=== PATIENT | female | born 1940 | race Caucasian/White ===

== ENCOUNTER 2017-06-11 22:49 | Inpatient (IN) | payer MEDICARE, OTHER ==
[~2017-06-11] VITALS: Ht 137.2 cm; Wt 89.3 kg
[~2017-06-11 22:49] MED LIST: ACET500C5 PO; ATEN50TA; ATOR40TA21; BENA20TA65; CITROMA PO; GLYB1TAB3; LORA-441; MELO-37; NPH,100V; OLME1TAB25; OMEP20CA16; ONDA4TAB35 PO; POLY17PO6 PO; TRAM-40; ZOLP10TA; [UNRECOGNIZED DRUG - CODE]
[2017-06-11] MEDS ORDERED: morphine 4 MG/ML VIAL IV STA (23:09)
[2017-06-11] MEDS ORDERED: FAMOTIDINE 20 MG INJ IV STA (23:09)
[2017-06-11] MEDS ORDERED: ONDANSETRON 4 MG INJ IV STA (23:09)
[2017-06-11] MEDS ORDERED: SOD CHLORIDE 0.9% 500 ML IV STA (23:09)
[2017-06-11 23:38] LABS: BASOPHIL # 0.1 10^3/ul (0.0-0.1); BASOPHILS % 0.6 % (0.0-2.0); EOSINOPHILS # 0.2 10^3/ul (0.0-0.5); EOSINOPHILS % 1.6 % (0.0-7.0); HEMATOCRIT 39.7 % (37.0-47.0); HEMOGLOBIN 13.6 g/dl (12.0-16.0); LYMPHOCYTES # 2.4 10^3/ul (0.8-2.9); LYMPHOCYTES % 25.2 % (15.0-51.0); MEAN CORPUSCULAR HEMOGLOBIN 29.3 pg (29.0-33.0); MEAN CORPUSCULAR HGB CONC 34.3 g/dl (32.0-37.0); MEAN CORPUSCULAR VOLUME 85.6 fl (82.0-101.0); MEAN PLATELET VOLUME 9.9 fl (7.4-10.4); MONOCYTE # 0.4 10^3/ul (0.3-0.9); MONOCYTES % 4.5 % (0.0-11.0); NEUTROPHIL # 6.4 10^3/ul (1.6-7.5); NEUTROPHILS % 67.8 % (39.0-77.0); PLATELET COUNT 268 10^3/UL (140-415); RED BLOOD COUNT 4.64 10^6/ul (4.20-5.40); RED CELL DISTRIBUTION WIDTH 12.9 % (11.5-14.5); WHITE BLOOD COUNT 9.4 10^3/ul (4.8-10.8)
[2017-06-11 23:48] LABS: ADD UMIC YES; UR ASCORBIC ACID NEGATIVE (NEGATIVE); UR BILIRUBIN (Dip) NEGATIVE (NEGATIVE); UR BLOOD (Dip) NEGATIVE (NEGATIVE); UR CLARITY CLEAR (CLEAR); UR COLOR STRAW (YELLOW); UR GLUCOSE (Dip) 1+ mg/dL (NEGATIVE); UR KETONES (Dip) NEGATIVE (NEGATIVE); UR LEUKOCYTE ESTERASE (Dip) TRACE Leu/ul (NEGATIVE); UR NITRITE (Dip) NEGATIVE (NEGATIVE); UR RBC 0 /HPF (0-5); UR SPECIFIC GRAVITY (Dip) 1.009 (1.003-1.030); UR TOTAL PROTEIN (Dip) NEGATIVE (NEGATIVE); UR UROBILINOGEN (Dip) NEGATIVE (NEGATIVE)
--- NOTE | 2017-06-11 23:54 | RADRPT ---
PROCEDURE: CT abdomen and pelvis without contrast. CLINICAL INDICATION: Lower abdominal pain. TECHNIQUE: Noncontrast CT examination of the abdomen and pelvis, with axial, sagittal and coronal reformatted images. CTDI: 22.67 mGy and DLP: 1170.11 mGy-cm. COMPARISON: None. FINDINGS: CT abdomen: Mild atelectasis at the left lower lobe. Otherwise, the lung bases are clear. The heart size is mi ldly enlarged, without pericardial thickening or effusion. The liver is normal in size and density without focal mass or intrahepatic biliary dilatation. The spleen is normal in size and homogeneous in density. The stomach is partially collapsed, but is che ssly unremarkable. The pancreas as visualized is normal. The gallbladder is surgically absent, and biliary tree is unremarkable and there is no evidence for biliary dilatation. The adrenal glands a re symmetric and normal. The kidneys are symmetrically unremarkable as well. No renal calculus or o bstructive uropathy or mass lesion is seen. The aorta is of normal caliber. Aortic vascular calcifications are present. There is no retroperit acosta lymphadenopathy. The jermaine hepatis region is clear. The bowel and mesentery, as visualized, are equally unremarkable. CT pelvis: Herniation of loops of small bowel into the right paracentral ventral pelvic region again seen, with new small bowel obstruction. Region of herniation measures 78 x 42 x 42 mm, and previously measured 67 x 33 x 31 mm obstruction is new over the interval. Herniation of single loop of small bowel into the subcutaneous fat over the lower right inguinal reg ion is without significant liner roll changer interval, and there is no small bowel obstruction at this loo p. The pelvic organs are normal. The pelvic sidewalls and inguinal regions are clear. The sigmoid col on and rectum are all unremarkable. No mass, lymphadenopathy, or free fluid is seen. No acute infl ammation is seen. The appendix is unremarkable. The surrounding osseous structures are remarkable for mild degenerative spondylosis of the spine. N o osteolytic or osteoblastic lesion is detected. IMPRESSION: Increased herniation of small bowel into the right paracentral ventral pelvic subcutaneous tissues, with new small bowel obstruction. These findings and impression were discussed with of the [facility] emergency depa rtment at the conclusion of this examination by the undersigned interpreting radiologist. RPTAT: UU Gurmeet Camacho Physician Date Time Electronically viewed and signed by Gurmeet Camacho Physician on 06/11/2017 23:54 RS/
[2017-06-12 00:12] LABS: ALBUMIN 4.2 g/dl (3.3-4.9); ALBUMIN/GLOBULIN RATIO 1.27; BILIRUBIN,INDIRECT 0.4 mg/dl (0-1.1); BILIRUBIN,TOTAL 0.4 mg/dl (0.2-1.3); CALCIUM 9.5 mg/dl (8.4-10.2); CREATININE 0.74 mg/dl (0.44-1.00); POTASSIUM 3.9 mmol/L (3.5-5.1); TOTAL PROTEIN 7.5 g/dl (6.1-8.1)
[2017-06-12] MEDS ORDERED: SOD CHLORIDE 0.9% 1,000 ML IV SCH (00:22)
--- NOTE | 2017-06-12 00:27 | ERA ---
ER Documentation Chief Complaint Date/Time DATE: 06/12/17 TIME: 00:24 Chief Complaint Generalized abdominal pain with nausea, started a couple of hours ago HPI This is a 76-year-old female with a previous history of abdominal hernia with obstruction and previous bowel resection presents to the emergency room today for evaluation of abdominal pain, nausea for the past 3 hours. She localizes the abdominal pain to the midportion of abdomen and denies any radiation of the pain. She says that she has associated nausea but no vomiting. No fevers or diarrhea associated with this. No aggravating or relieving factors for her symptoms. She came to the ER today for evaluation. ROS All systems reviewed and are negative except as per history of present illness. Medications Home Meds Active Scripts Ondansetron Hcl* (Zofran* ODT) 4 mg -ODT Tab.disper, 4 MG PO Q6 Y for NAUSEA AND /OR VOMITING, #10 TAB Prov:MARIBEL FARIA DO 04/15/16 Acetaminophen* (Tylophen*) 500 Mg Capsule, 500 MG PO Q6H, #20 TAB Prov:MARIBEL FARIA DO 04/15/16 Polyethylene Glycol* (Miralax*) 17 Gm Powd.pack, 17 GM PO DAILY, #7 Prov:TADEO FARIASHMONSERRAT TENORIO 04/15/16 Magnesium Citrate* (Citroma*) 300 Ml Soln, 300 ML PO ONCE, #1 BOTTLE Prov:GIANARUSSELLMARIBEL DO 04/15/16 Reported Medications Nph, Human Insulin Isophane (Humulin N) 100 Units/Ml Vial 04/25/10 Atenolol* (Atenolol*) 50 Mg Tablet 04/25/10 Olmesartan-Hydrochlorothiazide (Benicar HCT) 1 Tab Tablet 04/25/10 Meloxicam (Mobic) 15 Mg Tablet 04/25/10 Tramadol Hcl* (Ultram*) 50 Mg Tablet 04/25/10 Omeprazole* (Omeprazole*) 20 Mg Capsule. 04/25/10 Lorazepam* (Ativan*) 0.5 Mg Tablet 04/25/10 Benazepril Hcl* (Lotensin*) 20 Mg Tablet 04/25/10 Glyburide, Micro-Metformin Hcl (Glyburid-Metformin) 1 Tab Tablet 04/25/10 Atorvastatin (Lipitor) 40 Mg Tablet 04/25/10 Atorvastatin (Lipitor) 40 Mg Tablet 04/25/10 Zolpidem Tartrate* (Ambien*) 10 Mg Tablet 04/25/10 Belladonna Alkaloids/Phenobarb (Belladonna-Phenobarbital Tab) 16.2 Mg Tablet 04/25/10 Allergies Allergies: Coded Allergies: No Known Drug Allergies (Verified Allergy, Mild, 04/15/16) PMhx/Soc Anesthesia Reaction: No Hx Neurological Disorder: No Hx Respiratory Disorders: No Hx Cardiac Disorders: Yes (HYPERTENSION) Hx Psychiatric Problems: No Hx Miscellaneous Medical Probl: Yes Hx Alcohol Use: No Hx Substance Use: No Hx Tobacco Use: No Smoking Status: Unknown if ever smoked Physical Exam Vitals Vital Signs Date Time Temp Pulse Resp B/P Pulse Ox O2 Delivery O2 Flow Rate FiO2 06/12/17 00:21 64 16 156/83 98 Room Air 06/11/17 22:55 98.5 65 22 195/86 99 Physical Exam INITIAL VITAL SIGNS: Reviewed by me GENERAL: The patient appears to be in moderate distress HEENT: Pupils equal, round, and reactive to light. EOMI. There is no scleral icterus. NECK: C-spine is soft and supple, there is no meningismus. There is no cervical lymphadenopathy. LUNGS: Clear to auscultation bilaterally. There are no rales, wheezes or rhonchi. HEART: Regular rate and rhythm, no murmurs, clicks, rubs or gallops. ABDOMEN: Epigastric tenderness to palpation, palpable hernia at the periumbilical region with tenderness, guarding in all 4 quadrants, bowel sounds hyperactive EXTREMITIES: There is no peripheral cyanosis or edema. No focal swelling or erythema. NEUROLOGICAL: The patient moves all four extremities with 5/5 strength. Cranial nerves II - XII are intact. Normal gait. Alert and oriented SKIN: There is no apparent rash or petechiae. HEME/LYMPHATIC: There is no evidence of excessive bruising or lymphedema. PSYCHIATRIC: The patient does not appear anxious or depressed. Result Diagram: 06/11/17 3880 Results 24 hrs Laboratory Tests Test 06/11/17 23:25 White Blood Count 9.410^3/ul Red Blood Count 4.6410^6/ul Hemoglobin 13.6g/dl Hematocrit 39.7% Mean Corpuscular Volume 85.6fl Mean Corpuscular Hemoglobin 29.3pg Mean Corpuscular Hemoglobin Concent 34.3g/dl Red Cell Distribution Width 12.9% Platelet Count 86329^3/UL Mean Platelet Volume 9.9fl Neutrophils % 67.8% Lymphocytes % 25.2% Monocytes % 4.5% Eosinophils % 1.6% Basophils % 0.6% Nucleated Red Blood Cells % 0.0/100WBC Neutrophils # 6.410^3/ul Lymphocytes # 2.410^3/ul Monocytes # 0.410^3/ul Eosinophils # 0.210^3/ul Basophils # 0.110^3/ul Nucleated Red Blood Cells # 0.010^3/ul Urine Color STRAW Urine Clarity CLEAR Urine pH 7.0 Urine Specific [place] 1.009 Urine Ketones NEGATIVEmg/dL Urine Nitrite NEGATIVEmg/dL Urine Bilirubin NEGATIVEmg/dL Urine Urobilinogen NEGATIVEmg/dL Urine Leukocyte Esterase TRACELeu/ul Urine Microscopic RBC 0/HPF Urine Microscopic WBC 5/HPF Urine Hemoglobin NEGATIVEmg/dL Urine Glucose 1+mg/dL Urine Total Protein NEGATIVEmg/dl Current Medications Medications (Trade) Dose Ordered Sig/Nuvia Route PRN Reason Start Time Stop Time Status Last Admin Dose Admin Sodium Chloride (NS) 500 ml @ 500 mls/hr Q1H STAT IV 06/11/17 23:09 06/12/17 00:08 DC 06/11/17 23:40 Morphine Sulfate (morphine) 4 mg ONCE STAT IV 06/11/17 23:09 06/11/17 23:10 DC 06/11/17 23:39 Ondansetron HCl (Zofran Inj) 4 mg ONCE STAT IV 06/11/17 23:09 06/11/17 23:10 DC 06/11/17 23:39 Famotidine 20 mg 20 mg ONCE STAT IV 06/11/17 23:09 06/11/17 23:10 DC 06/11/17 23:40 Sodium Chloride (NS) 1,000 ml @ 80 mls/hr [id number] IV 06/12/17 00:22 06/12/17 12:51 Ondansetron HCl (Zofran Inj) 4 mg BRIDGE ORDER PRN IV NAUSEA AND/OR VOMITING 06/12/17 00:30 06/13/17 00:29 Acetaminophen (Tylenol Tab) 650 mg ER BRIDGE PRN PO MILD PAIN/FEVER 06/12/17 00:30 06/13/17 00:29 Procedures/MDM CT abdomen pelvis without: Increased herniation of small bowel into the right paracentral ventral pelvic subcutaneous tissues, with new small bowel obstruction. This 76-year-old female presents to the ER for evaluation of abdominal pain. The patient does have a previous history of abdominal pain associated with bowel obstruction. When I evaluated her she appear to be in moderate distress. She did have a palpable hernia at the periumbilical region. The patient did have lab work drawn and was given morphine for pain which is controlled her pain. CT was obtained which did confirm my suspicion of a small bowel obstruction. This patient is not vomiting, no need for nasogastric tube at this time. This patient will be placed in for admission under the care of her panel physician, Dr. hernandez have consulted our general surgeon on-call, Dr. Santacruz who agrees to evaluate this patient on the floor. Critical Care: Time: 33 minutes Treatments/Evaluations: Close monitoring and treatment of unstable vital signs, cardiorespiratory, and neurologic status, while maintaining tight balance of fluid, respiratory, and cardiac interventions, multiple bedside reevaluation. Departure Diagnosis: Primary Impression: Small bowel obstruction Additional Impression: Abdominal pain Condition: Stable CHRISJUAN DORADOSHORTY TENORIO Jun 12, 2017 00:27
[2017-06-12] MEDS ORDERED: ACETAMINOPHEN 325 MG TAB PO PRN (00:30)
[2017-06-12] MEDS ORDERED: ONDANSETRON 4 MG INJ IV PRN (00:30)
[2017-06-12 00:42] LABS: INR 0.96; PROTIME 12.8 Sec (12.2-14.2)
[2017-06-12 00:50] VITALS: Ht 137.2 cm; Wt 89.3 kg
[2017-06-12 01:21] VITALS: BP 141/80; RESP 16
[2017-06-12] MEDS ORDERED: FAMOTIDINE 20 MG INJ IV SCH (01:30)
[2017-06-12] MEDS ORDERED: morphine 4 MG/ML VIAL IV PRN (01:30)
[2017-06-12] MEDS ORDERED: GLUCOSE GEL 15 GRAM TUBE BUCCAL PRN (02:00)
[2017-06-12] MEDS ORDERED: GLUCAGON 1 MG INJ IM PRN (02:00)
[2017-06-12] MEDS ORDERED: DEXTROSE 50% 50 ML SYRINGE IV PRN ×2 (02:00)
[2017-06-12] MEDS ORDERED: GLUCOSE GEL 15 GRAM TUBE PO PRN ×2 (02:00)
[2017-06-12] MEDS ORDERED: ACCU-CHEK XX SCH ×3 (02:00)
[2017-06-12] MEDS: DEXTROSE 5%-0.45% NACL 1,000 ML IV SCH ×3 (02:05→22:01)
[2017-06-12] MEDS: morphine 4 MG/ML VIAL IV PRN ×4 (02:22→21:59)
[2017-06-12] MEDS: INSULIN ASPART [NOVOLOG] 3 ML PEN SC SCH ×5 (02:41→17:20)
[2017-06-12 05:40] LABS: BASOPHIL # 0.1 10^3/ul (0.0-0.1); BASOPHILS % 0.5 % (0.0-2.0); EOSINOPHILS # 0.2 10^3/ul (0.0-0.5); HEMATOCRIT 38.8 % (37.0-47.0); HEMOGLOBIN 12.6 g/dl (12.0-16.0); LYMPHOCYTES # 2.6 10^3/ul (0.8-2.9); LYMPHOCYTES % 27.6 % (15.0-51.0); MEAN CORPUSCULAR HEMOGLOBIN 28.4 pg (29.0-33.0); MEAN CORPUSCULAR HGB CONC 32.5 g/dl (32.0-37.0); MEAN CORPUSCULAR VOLUME 87.4 fl (82.0-101.0); MEAN PLATELET VOLUME 10.1 fl (7.4-10.4); MONOCYTE # 0.6 10^3/ul (0.3-0.9); MONOCYTES % 5.9 % (0.0-11.0); NEUTROPHILS % 63.7 % (39.0-77.0); PLATELET COUNT 260 10^3/UL (140-415); RED BLOOD COUNT 4.44 10^6/ul (4.20-5.40); RED CELL DISTRIBUTION WIDTH 13.2 % (11.5-14.5); WHITE BLOOD COUNT 9.4 10^3/ul (4.8-10.8)
[2017-06-12 06:04] LABS: ALBUMIN 3.9 g/dl (3.3-4.9); ALBUMIN/GLOBULIN RATIO 1.39; BILIRUBIN,INDIRECT 0.4 mg/dl (0-1.1); BILIRUBIN,TOTAL 0.4 mg/dl (0.2-1.3); CALCIUM 8.7 mg/dl (8.4-10.2); CREATININE 0.76 mg/dl (0.44-1.00); PHOSPHORUS 4.1 mg/dl (2.5-4.9); POTASSIUM 4.3 mmol/L (3.5-5.1); TOTAL PROTEIN 6.7 g/dl (6.1-8.1)
--- NOTE | 2017-06-12 06:09 | HP ---
Date/Time of Note Date/Time of Note DATE: 06/12/17 TIME: 06:00 Assessment/Plan VTE Prophylaxis VTE Prophylaxis Intervention: SCD's Lines/Catheters IV Catheter Type (from Nrsg): Peripheral IV Assessment/Plan Assessment/Plan 1. 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 -Keep n.p.o. with IV fluid -Pain management -Awaiting surgical evaluation -Will place an NG tube to suction as needed 2. Hypertensive urgency: Blood pressure better controlled -We will treat with as needed IV antihypertensives while n.p.o. 3. Type 2 diabetes -Insulin while in-house 4. History of gastritis -PPI 5. History of dyslipidemia -Resume home medication once no longer n.p.o. HPI/ROS Admit Date/Time Admit Date/Time Jun 12, 2017 at 00:22 Hx of Present Illness This is a 76-year-old female with a history of hypertension, diabetes, dyslipidemia, gastritis, ventral hernia repair, small bowel obstruction secondary to volvulus, status post laparoscopic converted to open exploration in 2009. Patient presented to the ER complaining of abdominal pain which started a few hours prior to presentation to the ER. Pain is diffuse but mainly located in the mid abdomen with associated nausea. When she presented to the ER, blood pressure was 195/86, respiratory rate of 22 otherwise the rest of her vitals were stable. Except a glucose of 228, CBC and CMP were within acceptable range. CT abd/pelvis showed Increased herniation of small bowel into the right paracentral ventral pelvic subcutaneous tissues, with new small bowel obstruction. . PMH/Family/Social Social History Smoking Status: Current every day smoker Exam/Review of Systems Vital Signs Vitals Vital Signs Date Time Temp Pulse Resp B/P Pulse Ox O2 Delivery O2 Flow Rate FiO2 06/12/17 01:21 98.6 71 16 141/80 91 06/12/17 00:21 Room Air Exam Constitutional: alert, oriented, well developed Head: atraumatic, normocephalic Eyes: EOMI, PERRL Respiratory: clear to auscultation, normal air movement Cardiovascular: nl pulses, regular rate and rhythm Gastrointestinal: soft, tender Extremities: normal pulses Labs Result Diagram: 06/12/17 0440 06/11/17 6196 Medications Medications Current Medications Sodium Chloride 1,000 ml @ 80 mls/hr [id number] IV ; Start 06/12/17 at 00:22; Stop 06/12/17 at 12:51 Dextrose/Sodium Chloride (D5-1/2ns) 1,000 ml @ 100 mls/hr Q10H IV Last administered on 06/12/17 02:05; Admin Dose 100 MLS/HR; Start 06/12/17 at 01:30 Ondansetron HCl (Zofran Inj) 4 mg Q6H PRN IV NAUSEA AND/OR VOMITING; Start 06/12 at 01:30 Insulin Glargine (Lantus) 10 unit DAILY@08 SC ; Start 06/12/17 at 08:00 Insulin Aspart (Novolog Insulin Pen) NOVOLOG *MILD* ALGORI... Q6 SC Last administered on 06/12/17 02:41; Admin Dose 3 UNIT; Start 06/12/17 at 02:00 Miscellaneous Information 1 ea NOTE XX ; Start 06/12/17 at 02:00 Glucose (Glutose) 15 gm Q15M PRN PO DECREASED GLUCOSE; Start 06/12/17 at 02:00 Glucose (Glutose) 22.5 gm Q15M PRN PO DECREASED GLUCOSE; Start 06/12/17 at 02:00 Dextrose (D50w Syringe) 25 ml Q15M PRN IV DECREASED GLUCOSE; Start 06/12/17 at 02:00 Dextrose (D50w Syringe) 50 ml Q15M PRN IV DECREASED GLUCOSE; Start 06/12/17 at 02:00 Glucagon (Glucagen) 1 mg Q15M PRN IM DECREASED GLUCOSE; Start 06/12/17 at 02:00 Glucose (Glutose) 15 gm Q15M PRN BUCCAL DECREASED GLUCOSE; Start 06/12/17 at 02: 00 Famotidine (Pepcid Iv) 20 mg DAILY IV ; Start 06/12/17 at 09:00 Morphine Sulfate (morphine) 4 mg Q4H PRN IV PAIN Last administered on 06/12/17 02:22; Admin Dose 4 MG; Start 06/12/17 at 02:30 OKSANA ROBERTSON MD Jun 12, 2017 06:09
[2017-06-12] MEDS ORDERED: INSULIN GLARGINE [LANtus] 3 ML PEN SC SCH ×2 (08:00)
[2017-06-12] MEDS: FAMOTIDINE 20 MG INJ IV SCH (08:31)
[2017-06-12 10:01] VITALS: BP 146/67; RESP 18
--- NOTE | 2017-06-12 12:50 | RADRPT ---
PROCEDURE: Chest radiograph CLINICAL INDICATION: Verify NGT placement.. TECHNIQUE: Single portable frontal view. COMPARISON: None relevant listed. FINDINGS: The nasogastric tube terminates below the diaphragm out of the field of view. The lungs are clear. No pleural effusion or focal parenchymal opacity. The heart is enlarged. Moderate lateral endplate spurring of the thoracic spine. No suspicious bone lesion. IMPRESSION: The nasogastric tube courses well below the gastroesophageal junction. The actual tip of the nasog astric tube lies below the field of view. RPTAT: PP Physician Armand Date Time Electronically viewed and signed by Physician Armand on 06/12/2017 12:49 LG/
[2017-06-12] MEDS ORDERED: INSULIN GLARGINE [LANtus] 3 ML PEN SC ONE (13:00)
--- NOTE | 2017-06-12 13:00 | PN ---
Date/Time of Note Date/Time of Note DATE: 06/12/17 TIME: 12:57 Assessment/Plan VTE Prophylaxis VTE Prophylaxis Intervention: other Lines/Catheters IV C[facility] Type [facility]from [facility] Peripheral IV Urinary Cath still in place: No Assessment/Plan Problems: (1) Hernia of anterior abdominal wall Status: Acute Comment: This was found on the CT scan. We will have to observe her and treat her conservatively and hope to avoid any need for emergent surgery. Awaiting general surgery consultation who has been notified directly (2) Small bowel obstruction Status: Acute Comment: As above. Attempt to treat conservatively. (3) Essential hypertension Status: Chronic Comment: Adequate control. Resume JAMES inhibitor is as single agent therapy when the patient is taking p.o. Please note that there is no indication for the using the combination of JAMES inhibitor with an A2 receptor manuel drug (4) Morbid obesity with BMI of 45.0-49.9, adult Status: Chronic Comment: Calorie restriction diet. (5) Diabetes mellitus type 2 in obese Status: Chronic Comment: She appears to have had good control. For now since we can give her her medications orally she will be on an insulin-based protocol. Once she is able to take p.o. than we can resume her oral medications (6) Diastolic dysfunction Status: Chronic Comment: Noted. If necessary addition of low-dose beta-blockade Subjective 24 Hr Interval Summary Free Text/Dictation Prydeinig speaking female lying in bed with an NG attached to suction. Daughter at bedside translating Constitutional: no complaints (Denies fevers chills or sweats) ENT: other (Complains of sore throat and tenderness from the NG tube) Respiratory: no complaints Cardiovascular: no complaints Gastrointestinal: nausea, pain Genitourinary: no complaints Exam/Review of Systems Vital Signs Vitals Vital Signs Date Time Temp Pulse Resp B/P Pulse Ox O2 Delivery O2 Flow Rate FiO2 06/12/17 10:01 98.8 61 18 146/67 93 06/12/17 00:21 Room Air Intake and Output 06/11/17 06/11/17 06/12/17 15:00 23:00 07:00 Intake Total 300 ml Balance 300 ml Exam Constitutional: alert, oriented Neck: non-tender, supple Respiratory: clear to auscultation, normal air movement Cardiovascular: nl pulses, regular rate and rhythm Gastrointestinal: other (Quiet) Results Result Diagram: 06/12/17 0440 06/12/17 0440 Results 24 hrs Laboratory Tests Test 06/11/17 23:25 06/12/17 00:05 06/12/17 01:41 06/12/17 04:40 White Blood Count 9.4 # 9.4 Red Blood Count 4.64 4.44 Hemoglobin 13.6 12.6 Hematocrit 39.7 38.8 Mean Corpuscular Volume 85.6 87.4 Mean Corpuscular Hemoglobin 29.3 28.4 L Mean Corpuscular Hemoglobin Concent 34.3 32.5 Red Cell Distribution Width 12.9 13.2 Platelet Count 268 260 Mean Platelet Volume 9.9 10.1 Neutrophils % 67.8 63.7 Lymphocytes % 25.2 27.6 Monocytes % 4.5 5.9 Eosinophils % 1.6 2.0 Basophils % 0.6 0.5 Nucleated Red Blood Cells % 0.0 0.0 Neutrophils # 6.4 6.0 Lymphocytes # 2.4 2.6 Monocytes # 0.4 0.6 Eosinophils # 0.2 0.2 Basophils # 0.1 0.1 Nucleated Red Blood Cells # 0.0 0.0 Urine Color STRAW Urine Clarity CLEAR Urine pH 7.0 Urine Specific [place] 1.009 Urine Ketones NEGATIVE Urine Nitrite NEGATIVE Urine Bilirubin NEGATIVE Urine Urobilinogen NEGATIVE Urine Leukocyte Esterase TRACE A Urine Microscopic RBC 0 Urine Microscopic WBC 5 Urine Hemoglobin NEGATIVE Urine Glucose 1+ H Urine Total Protein NEGATIVE Sodium Level 143 142 Potassium Level 3.9 4.3 Chloride Level 101 102 Carbon Dioxide Level 25 27 Anion Gap 21 H 17 H Blood Urea Nitrogen 12 11 Creatinine 0.74 0.76 Glucose Level 228 H 267 H Calcium Level 9.5 8.7 Total Bilirubin 0.4 0.4 Direct Bilirubin 0.00 0.00 Indirect Bilirubin 0.4 0.4 Aspartate Amino Transf (AST/SGOT) 16 23 Alanine Aminotransferase (ALT/SGPT) 31 26 Alkaline Phosphatase 76 60 Total Protein 7.5 6.7 Albumin 4.2 3.9 Globulin 3.30 H 2.80 Albumin/Globulin Ratio 1.27 1.39 Lipase 145 Prothrombin Time 12.8 Prothrombin Time Ratio 1.0 INR International Normalized Ratio 0.96 Activated Partial Thromboplast Time 31.0 Lactic Acid Level 1.2 Bedside Glucose 228 H Phosphorus Level 4.1 Magnesium Level 2.0 Test 06/12/17 06:28 06/12/17 12:16 Bedside Glucose 249 H 207 Medications Medications Current Medications Dextrose/Sodium Chloride (D5-1/2ns) 1,000 ml @ 100 mls/hr Q10H IV Last administered on 06/12/17 12:12; Admin Dose 100 MLS/HR; Start 06/12/17 at 01:30 Ondansetron HCl (Zofran Inj) 4 mg Q6H PRN IV NAUSEA AND/OR VOMITING; Start 06/12 at 01:30 Insulin Aspart (Novolog Insulin Pen) NOVOLOG *MILD* ALGORI... Q6 SC Last administered on 06/12/17 12:20; Admin Dose 2 UNIT; Start 06/12/17 at 02:00 Miscellaneous Information 1 ea NOTE XX ; Start 06/12/17 at 02:00 Glucose (Glutose) 15 gm Q15M PRN PO DECREASED GLUCOSE; Start 06/12/17 at 02:00 Glucose (Glutose) 22.5 gm Q15M PRN PO DECREASED GLUCOSE; Start 06/12/17 at 02:00 Dextrose (D50w Syringe) 25 ml Q15M PRN IV DECREASED GLUCOSE; Start 06/12/17 at 02:00 Dextrose (D50w Syringe) 50 ml Q15M PRN IV DECREASED GLUCOSE; Start 06/12/17 at 02:00 Glucagon (Glucagen) 1 mg Q15M PRN IM DECREASED GLUCOSE; Start 06/12/17 at 02:00 Glucose (Glutose) 15 gm Q15M PRN BUCCAL DECREASED GLUCOSE; Start 06/12/17 at 02: 00 Famotidine (Pepcid Iv) 20 mg DAILY IV Last administered on 06/12/17 08:31; Admin Dose 20 MG; Start 06/12/17 at 09:00 Morphine Sulfate (morphine) 4 mg Q4H PRN IV PAIN Last administered on 06/12/17 08:31; Admin Dose 4 MG; Start 06/12/17 at 02:30 Insulin Glargine (Lantus) 12 unit DAILY@08 SC Last administered on 06/12/17 08: 36; Admin Dose 12 UNIT; Start 06/12/17 at 08:00 MARIBEL BAZZI MD Jun 12, 2017 13:00
[2017-06-12 15:53] VITALS: BP 165/70; RESP 18
--- NOTE | 2017-06-12 16:36 | CONS ---
Date/Time of Note Date/Time of Note DATE: 06/12/17 TIME: 16:36 Assessment/Plan Assessment/Plan Additional Assessment/Plan [facility] INPATIENT CONSULTATION NOTE DATE OF SERVICE: 06/12/2017 PLACE OF SERVICE: [facility], second floor East ASSESSMENT AND PLAN: A very-pleasant 76-year-old lady with multiple comorbid issues as listed below, presenting with a complicated picture of abdominal wall hernia which is recurrent from previous operation in 2009. There are at least 2 areas of herniation in the lower midline area. Unclear whether there is any mesh (no mention of mesh in 2010 op note). Patient also reports no other operations since then. Assuming no mesh present, the patient will still have need for complicated ventral hernia repair. Given the numerous pre-existing comorbidities, she is at virtually 100% risk of developing complications and roughly about 15-20% risk of mortality if an emergency operation is needed. Fortunately, I do not see a need for acute surgical intervention at this moment and would like to try to decompress the GI tract from above as you are with the NG tube and keep her n.p.o. with the hopes that the patient will convert from an emergency operation to an urgent or possibly an elective operation. If the patient stabilizes adequately enough, it may be to her best interest to be referred to a hernia center in order to deliver the best available care. Not certain if that will be a possibility in this case. I explained all the above in detail to the patient and her granddaughter who appeared to understand and had all their questions answered and agreed with the plans. With above assessment, I've recommended the followin. Continue current management 2. Continue NG decompression 3. Continue n.p.o. status 4. Labs in a.m. 5. Careful evaluation of I's and O's and vitals 6. Possible need for preoperative cardiopulmonary clearance Thank you very much for having me involved in the care of this very pleasant patient and wonderful family. If you have any questions, please feel free to contact me at [phone]. Nature of presenting problem: High severity Please note that, given the extensive number of diagnoses or management options , the extensive amount and/or complexity of data needed to be reviewed, and high risk of complications and/or morbidity or mortality, this qualifies as high complexity type of decision-making. Disclaimer: Inadvertent spelling and grammatical errors are likely due to EHR/ dictation software use and do not reflect on the quality of delivered patient care. Also, please note that the electronic time recorded on this node does not necessarily reflect the actual time of the visit. Updated clinical summary: A very-pleasant 76-year-old lady with multiple comorbid issues as listed below, presenting with a complicated picture of abdominal wall hernia which is recurrent from previous operation in 2009. Comorbidities: 1. BMI 47.5 2. Status post cholecystectomy before 2009 3. Status post hospitalization [facility] April 2010 with NG decompression (? Small bowel obstruction) 4. Status post hospitalization [facility] August 2012 5. Atherosclerotic vascular disease with calcifications in the aorta 6. Ventral hernia noted minimum 2009 with additional images supporting hernia 2011 7. Nonobstructing left nephrolithiasis. 8. Dyslipidemia 9. Gastritis 10. Diabetes mellitus type 2 11. Hypertension with hypertensive emergencies. 12. Status post ventral hernia repair in the form of laparoscopic converted to open exploration for bowel obstruction secondary to volvulus by Dr. Tom Walsh on 04/28/2010 at [facility] 13. Umbilical hernia repair previous 2009 14. Status post partial hysterectomy CONSULTATION REQUESTED BY: Rj Arellano MD HISTORY OF PRESENT ILLNESS: The patient is a very pleasant 76-year-old lady with above-mentioned multiple comorbidities, were kindly asked consult regarding management of possible small bowel obstruction in the setting of known ventral hernia at least since before 2009, status post prior surgeries ( details missing). Presenting problem was diffuse but mainly localized to mid abdomen abdominal pain associated with nausea but no obvious vomiting. Currently the pain is significantly better with medications although it is still present. Described as diffuse and bandlike in nature. 10 out of 10 at its worst. Nonradiating. No significant alleviating or exacerbating factors. Also complaining of throat pain with the NG tube. ALLERGIES: NO KNOWN DRUG ALLERGIES MEDICATIONS Documented in the electronic records and reviewed by me. Please see the electronic records for details, as well as details for inpatient medications which were also reviewed by me. SOCIAL HISTORY: The patient lives with family. + Tob (current every day smoker );-ETOH;-IVDU FAMILY HISTORY: There are no significant medical, surgical or oncologic issues in the family as reported by the patient or reflected in the chart. REVIEW OF SYSTEMS: Other than mentioned above, there were no other pertinent positives or pertinent negatives in an otherwise complete 14 point review of systems. PHYSICAL EXAMINATION GENERAL: The patient appears to be a very pleasant lady of [place] descent lying in bed, appearing stated age, and otherwise in no acute distress. BMI: 47.5 VITAL SIGNS: AVSS (please also see auto important data if available as well as the electronic records) HEENT: Normocephalic and atraumatic. Extraocular muscles and hearing are grossly intact bilaterally and symmetrically. Sclerae are nonicteric. Oral cavity is clear; oral mucosa appear to be pink and moist. Dentition: fair. NECK: Supple. There is no lymphadenopathy or JVD. There is no submental, submandibular or supraclavicular lymphadenopathy. CHEST: Rises symmetrically with each breath; patient is breathing comfortably. There are no audible wheezes, rales or rhonchi on the gross exam. HEART: Pulse is regular and palpable on the right wrist. Capillary refill is normal. Carotid pulses are palpable bilaterally and symmetrically in the neck. EXTREMITIES: Lower extremities contain no pitting edema around the ankles bilaterally and symmetrically. ABDOMEN: Abdomen is soft, nontender and nondistended. No evidence of ascites, organomegaly, caput medusae, engorged subcutaneous veins, or other abnormalities. There are no peritoneal signs or guarding. SKIN: Appears to be pink and feels warm to touch. NEUROLOGIC: Awake, alert, and follows commands appropriately. LABORATORY DATA: See below IMAGING: See electronic chart. Please note that I've personally reviewed all pertinent available images and I agree in general with their overall reported findings. CT scan abdomen and pelvis [facility] 04/27/2010 IMPRESSION: 1. DISTENDED AND FLUID-FILLED DISTAL SMALL BOWEL, WHICH MAY REPRESENT A SMALL BOWEL OBSTRUCTION. CONTINUED FOLLOWUP IS SUGGESTED. 2. NASOGASTRIC TUBE IDENTIFIED. 3. STATUS POST CHOLECYSTECTOMY. CT scan abdomen and pelvis [facility] 08/31/2012 IMPRESSION: 1. TWO VENTRAL HERNIAS, ONE IN THE ANTERIOR ABDOMINAL WALL ON THE RIGHT JUST BELOW THE UMBILICUS WITHOUT INCARCERATION OR OBSTRUCTION. 2. SMALL RIGHT INGUINAL HERNIA WITH A LOOP OF SMALL BOWEL WITHOUT DEFINITE INCARCERATION OR OBSTRUCTION. THIS HERNIA WAS NOT PRESENT CT scan abdomen and pelvis [facility] 04/15/2016 IMPRESSION: No evidence of abdominopelvic mass, lymphadenopathy or acute inflammatory pathology. Small nonspecific subpleural nodule of the right middle lobe. Recommend follow up with dedicated CT chest without contrast in 3-6 months. Surgical changes of the distal small intestines. No abnormality of the surgical bed. Nonobstructing left nephrolithiasis. Lower ventral abdominal wall hernia containing loops of small intestines. No associated obstruction or inflammation. The hernia sac is slightly larger when compared to prior examination. CT scan abdomen and pelvis [facility] 06/11/2017 IMPRESSION: Increased herniation of small bowel into the right paracentral ventral pelvic subcutaneous tissues, with new small bowel obstruction. These findings and impression were discussed with of the [facility] emergency department at the conclusion of this examination by the undersigned interpreting radiologist. Consultation Date/Type/Reason Admit Date/Time Jun 12, 2017 at 00:22 Constitutional: no complaints (Denies fevers chills or sweats) ENT: other (Complains of sore throat and tenderness from the NG tube) Respiratory: no complaints Cardiovascular: no complaints Gastrointestinal: nausea, pain Genitourinary: no complaints Social History Smoking Status: Current every day smoker Exam/Review of Systems Vital Signs Vitals Vital Signs Date Time Temp Pulse Resp B/P Pulse Ox O2 Delivery O2 Flow Rate FiO2 06/12/17 15:53 98.6 18 165/70 94 06/12/17 10:01 61 06/12/17 00:21 Room Air Intake and Output 06/11/17 06/11/17 06/12/17 15:00 23:00 07:00 Intake Total 300 ml Balance 300 ml Results Result Diagram: 06/12/17 0440 06/12/17 0440 Results 24 hrs Laboratory Tests Test 06/11/17 23:25 06/12/17 00:05 06/12/17 01:41 06/12/17 04:40 White Blood Count 9.4 # 9.4 Red Blood Count 4.64 4.44 Hemoglobin 13.6 12.6 Hematocrit 39.7 38.8 Mean Corpuscular Volume 85.6 87.4 Mean Corpuscular Hemoglobin 29.3 28.4 L Mean Corpuscular Hemoglobin Concent 34.3 32.5 Red Cell Distribution Width 12.9 13.2 Platelet Count 268 260 Mean Platelet Volume 9.9 10.1 Neutrophils % 67.8 63.7 Lymphocytes % 25.2 27.6 Monocytes % 4.5 5.9 Eosinophils % 1.6 2.0 Basophils % 0.6 0.5 Nucleated Red Blood Cells % 0.0 0.0 Neutrophils # 6.4 6.0 Lymphocytes # 2.4 2.6 Monocytes # 0.4 0.6 Eosinophils # 0.2 0.2 Basophils # 0.1 0.1 Nucleated Red Blood Cells # 0.0 0.0 Urine Color STRAW Urine Clarity CLEAR Urine pH 7.0 Urine Specific [place] 1.009 Urine Ketones NEGATIVE Urine Nitrite NEGATIVE Urine Bilirubin NEGATIVE Urine Urobilinogen NEGATIVE Urine Leukocyte Esterase TRACE A Urine Microscopic RBC 0 Urine Microscopic WBC 5 Urine Hemoglobin NEGATIVE Urine Glucose 1+ H Urine Total Protein NEGATIVE Sodium Level 143 142 Potassium Level 3.9 4.3 Chloride Level 101 102 Carbon Dioxide Level 25 27 Anion Gap 21 H 17 H Blood Urea Nitrogen 12 11 Creatinine 0.74 0.76 Glucose Level 228 H 267 H Calcium Level 9.5 8.7 Total Bilirubin 0.4 0.4 Direct Bilirubin 0.00 0.00 Indirect Bilirubin 0.4 0.4 Aspartate Amino Transf (AST/SGOT) 16 23 Alanine Aminotransferase (ALT/SGPT) 31 26 Alkaline Phosphatase 76 60 Total Protein 7.5 6.7 Albumin 4.2 3.9 Globulin 3.30 H 2.80 Albumin/Globulin Ratio 1.27 1.39 Lipase 145 Prothrombin Time 12.8 Prothrombin Time Ratio 1.0 INR International Normalized Ratio 0.96 Activated Partial Thromboplast Time 31.0 Lactic Acid Level 1.2 Bedside Glucose 228 H Phosphorus Level 4.1 Magnesium Level 2.0 Test 06/12/17 06:28 06/12/17 12:16 Bedside Glucose 249 H 207 Medications Medications Current Medications Dextrose/Sodium Chloride (D5-1/2ns) 1,000 ml @ 100 mls/hr Q10H IV Last administered on 06/12/17 12:12; Admin Dose 100 MLS/HR; Start 06/12/17 at 01:30 Ondansetron HCl (Zofran Inj) 4 mg Q6H PRN IV NAUSEA AND/OR VOMITING; Start 06/12 at 01:30 Insulin Aspart (Novolog Insulin Pen) NOVOLOG *MILD* ALGORI... Q6 SC Last administered on 06/12/17 12:20; Admin Dose 2 UNIT; Start 06/12/17 at 02:00 Miscellaneous Information 1 ea NOTE XX ; Start 06/12/17 at 02:00 Glucose (Glutose) 15 gm Q15M PRN PO DECREASED GLUCOSE; Start 06/12/17 at 02:00 Glucose (Glutose) 22.5 gm Q15M PRN PO DECREASED GLUCOSE; Start 06/12/17 at 02:00 Dextrose (D50w Syringe) 25 ml Q15M PRN IV DECREASED GLUCOSE; Start 06/12/17 at 02:00 Dextrose (D50w Syringe) 50 ml Q15M PRN IV DECREASED GLUCOSE; Start 06/12/17 at 02:00 Glucagon (Glucagen) 1 mg Q15M PRN IM DECREASED GLUCOSE; Start 06/12/17 at 02:00 Glucose (Glutose) 15 gm Q15M PRN BUCCAL DECREASED GLUCOSE; Start 06/12/17 at 02: 00 Famotidine (Pepcid Iv) 20 mg DAILY IV Last administered on 06/12/17 08:31; Admin Dose 20 MG; Start 06/12/17 at 09:00 Morphine Sulfate (morphine) 4 mg Q4H PRN IV PAIN Last administered on 06/12/17 08:31; Admin Dose 4 MG; Start 06/12/17 at 02:30 Insulin Glargine (Lantus) 18 unit DAILY@08 SC ; Start 06/13/17 at 08:00 COBY DAY M.D. Jun 12, 2017 16:36
[2017-06-12 19:43] VITALS: BP 166/74; RESP 20
[2017-06-12] MEDS: hydrALAzine 20 MG INJ IV PRN (21:13)
[2017-06-12 21:45] VITALS: BP 141/66; RESP 18
[2017-06-12] MEDS: ONDANSETRON 4 MG INJ IV PRN (22:25)
[2017-06-13] MEDS: INSULIN ASPART [NOVOLOG] 3 ML PEN SC SCH ×4 (00:12→17:06)
[2017-06-13 02:09] VITALS: BP 171/79; RESP 20
[2017-06-13] MEDS: morphine 4 MG/ML VIAL IV PRN (02:29)
[2017-06-13] MEDS: hydrALAzine 20 MG INJ IV PRN (02:30)
[2017-06-13 02:45] VITALS: BP 149/63
[2017-06-13 05:33] LABS: BASOPHIL # 0.1 10^3/ul (0.0-0.1); BASOPHILS % 0.6 % (0.0-2.0); EOSINOPHILS # 0.1 10^3/ul (0.0-0.5); EOSINOPHILS % 1.2 % (0.0-7.0); HEMATOCRIT 39.9 % (37.0-47.0); HEMOGLOBIN 13.1 g/dl (12.0-16.0); LYMPHOCYTES # 1.7 10^3/ul (0.8-2.9); MEAN CORPUSCULAR HEMOGLOBIN 28.7 pg (29.0-33.0); MEAN CORPUSCULAR HGB CONC 32.8 g/dl (32.0-37.0); MEAN CORPUSCULAR VOLUME 87.5 fl (82.0-101.0); MONOCYTE # 0.5 10^3/ul (0.3-0.9); MONOCYTES % 5.5 % (0.0-11.0); NEUTROPHIL # 6.6 10^3/ul (1.6-7.5); NEUTROPHILS % 72.9 % (39.0-77.0); PLATELET COUNT 236 10^3/UL (140-415); RED BLOOD COUNT 4.56 10^6/ul (4.20-5.40); RED CELL DISTRIBUTION WIDTH 13.3 % (11.5-14.5)
[2017-06-13 06:08] LABS: ALBUMIN 3.5 g/dl (3.3-4.9); ALBUMIN/GLOBULIN RATIO 1.16; BILIRUBIN,INDIRECT 0.4 mg/dl (0-1.1); BILIRUBIN,TOTAL 0.4 mg/dl (0.2-1.3); CALCIUM 8.5 mg/dl (8.4-10.2); CREATININE 0.64 mg/dl (0.44-1.00); POTASSIUM 3.8 mmol/L (3.5-5.1); TOTAL PROTEIN 6.5 g/dl (6.1-8.1)
[2017-06-13] MEDS: ONDANSETRON 4 MG INJ IV PRN ×2 (06:17→13:27)
[2017-06-13] MEDS: FAMOTIDINE 20 MG INJ IV SCH (08:33)
[2017-06-13] MEDS: DEXTROSE 5%-0.45% NACL 1,000 ML IV SCH ×3 (08:33→22:45)
[2017-06-13] MEDS: INSULIN GLARGINE [LANtus] 3 ML PEN SC SCH (08:34)
[2017-06-13 08:38] VITALS: BP 150/72; RESP 20
[2017-06-13] MEDS ORDERED: ACETAMINOPHEN 650 MG SUPP PR PRN (10:00)
--- NOTE | 2017-06-13 12:43 | PN ---
Date/Time of Note Date/Time of Note DATE: 06/13/17 TIME: 12:40 Assessment/Plan VTE Prophylaxis VTE Prophylaxis Intervention: SCD's Lines/Catheters IV Catheter Type (from Nrs): Peripheral IV Urinary Cath still in place: No Assessment/Plan Assessment/Plan 1. acute Small bowel obstruction 2. Hernia of anterior abd wall 3. HTN 4. DM II 5. Morbid obesity 6. FEver spike-concerned about intraabdominal infection Plan: Blood cx x 2, UA< Urine Cx after drawing cultures, will start Rocephin + Flagy to cover for intrabdomial infection NG tube suction, G surgery Dr.Kambiz Santacruz has been following SCD for DVT prophylaxis IVF D51/2 NS at 100 cc/Hr Pepcid for GI prophylaxis Subjective 24 Hr Interval Summary Free Text/Dictation Pt spiked fever to 102, Bp stable, no chills Exam/Review of Systems Vital Signs Vitals Vital Signs Date Time Temp Pulse Resp B/P Pulse Ox O2 Delivery O2 Flow Rate FiO2 06/13/17 12:19 100.8 06/13/17 08:38 85 20 150/72 96 06/12/17 00:21 Room Air Intake and Output 06/12/17 06/12/17 06/13/17 15:00 23:00 07:00 Intake Total 700 ml 1000 ml 700 ml Output Total 25 ml 75 ml Balance 700 ml 975 ml 625 ml Exam Constitutional: alert, oriented Neck: non-tender, supple, + NG tube in place Respiratory: clear to auscultation, normal air movement Cardiovascular: nl pulses, regular rate and rhythm Gastrointestinal: no bowel sounds Results Result Diagram: 06/13/17 0454 06/13/17 0450 Results 24 hrs Laboratory Tests Test 06/12/17 17:18 06/12/17 22:16 06/13/17 00:08 06/13/17 04:50 Bedside Glucose 188 196 238 H Sodium Level 139 Potassium Level 3.8 Chloride Level 99 Carbon Dioxide Level 27 Anion Gap 17 H Blood Urea Nitrogen 6 L Creatinine 0.64 Glucose Level 280 H Calcium Level 8.5 Total Bilirubin 0.4 Direct Bilirubin 0.00 Indirect Bilirubin 0.4 Aspartate Amino Transf (AST/SGOT) 14 L Alanine Aminotransferase (ALT/SGPT) 29 Alkaline Phosphatase 58 Total Protein 6.5 Albumin 3.5 Globulin 3.00 Albumin/Globulin Ratio 1.16 Test 06/13/17 04:54 06/13/17 06:09 06/13/17 07:57 06/13/17 12:13 White Blood Count 9.0 Red Blood Count 4.56 Hemoglobin 13.1 Hematocrit 39.9 Mean Corpuscular Volume 87.5 Mean Corpuscular Hemoglobin 28.7 L Mean Corpuscular Hemoglobin Concent 32.8 Red Cell Distribution Width 13.3 Platelet Count 236 Mean Platelet Volume 10.0 Neutrophils % 72.9 Lymphocytes % 19.0 Monocytes % 5.5 Eosinophils % 1.2 Basophils % 0.6 Nucleated Red Blood Cells % 0.0 Neutrophils # 6.6 Lymphocytes # 1.7 Monocytes # 0.5 Eosinophils # 0.1 Basophils # 0.1 Nucleated Red Blood Cells # 0.0 Bedside Glucose 253 H 254 H 235 H Medications Medications Current Medications Dextrose/Sodium Chloride (D5-1/2ns) 1,000 ml @ 100 mls/hr Q10H IV Last administered on 06/13/17 08:33; Admin Dose 100 MLS/HR; Start 06/12/17 at 01:30 Ondansetron HCl (Zofran Inj) 4 mg Q6H PRN IV NAUSEA AND/OR VOMITING Last administered on 06/13/17 06:17; Admin Dose 4 MG; Start 06/12/17 at 01:30 Insulin Aspart (Novolog Insulin Pen) NOVOLOG *MILD* ALGORI... Q6 SC Last administered on 06/13/17 12:15; Admin Dose 3 UNIT; Start 06/12/17 at 02:00 Miscellaneous Information 1 ea NOTE XX ; Start 06/12/17 at 02:00 Glucose (Glutose) 15 gm Q15M PRN PO DECREASED GLUCOSE; Start 06/12/17 at 02:00 Glucose (Glutose) 22.5 gm Q15M PRN PO DECREASED GLUCOSE; Start 06/12/17 at 02:00 Dextrose (D50w Syringe) 25 ml Q15M PRN IV DECREASED GLUCOSE; Start 06/12/17 at 02:00 Dextrose (D50w Syringe) 50 ml Q15M PRN IV DECREASED GLUCOSE; Start 06/12/17 at 02:00 Glucagon (Glucagen) 1 mg Q15M PRN IM DECREASED GLUCOSE; Start 06/12/17 at 02:00 Glucose (Glutose) 15 gm Q15M PRN BUCCAL DECREASED GLUCOSE; Start 06/12/17 at 02: 00 Famotidine (Pepcid Iv) 20 mg DAILY IV Last administered on 06/13/17 08:33; Admin Dose 20 MG; Start 06/12/17 at 09:00 Morphine Sulfate (morphine) 4 mg Q4H PRN IV PAIN Last administered on 06/13/17 02:29; Admin Dose 4 MG; Start 06/12/17 at 02:30 Insulin Glargine (Lantus) 18 unit DAILY@08 SC Last administered on 06/13/17 08: 34; Admin Dose 18 UNIT; Start 06/13/17 at 08:00 Hydralazine HCl (Apresoline) 10 mg Q4H PRN IV ELEVATED BLOOD PRESSURE Last administered on 06/13/17 02:30; Admin Dose 10 MG; Start 06/12/17 at 20:30 Acetaminophen (Tylenol Supp) 650 mg Q6H PRN NV temperature Last administered on 06/13/17 10:02; Admin Dose 650 MG; Start 06/13/17 at 10:00 HARSHA ATKINS MD Jun 13, 2017 12:43
[2017-06-13] MEDS: CEFTRIAXONE 1 GM/50 ML (PMX) 50 ML IVPB SCH (12:48)
[2017-06-13] MEDS: metroNIDAZOLE 500 MG/NS (PMX) 100 ML IVPB SCH ×2 (13:28→22:44)
[2017-06-13 15:12] VITALS: BP 139/61; RESP 18
--- NOTE | 2017-06-13 20:12 | PN ---
Date/Time of Note Date/Time of Note DATE: 06/13/17 TIME: 20:11 Assessment/Plan Lines/Catheters IV Catheter Type (from [facility]): Peripheral IV Morgan in Place (from [facility]): No Assessment/Plan Assessment/Plan [facility] Progress Note Date of Service: 06/13/2017 Place of service: [facility] second floor East Today's Assessment & Plan: Overall stable without a surgical abdomen although abdominal pain is still an issue. No indication for acute surgical intervention. Would like to see if we can get the patient to move away from an emergency situation tomorrow elective hernia repair. I discussed at length over the phone with patient's son and answered all of his questions. I offered option of potential referral to a hernia specialist if we can get the patient to become medically stable enough to discharge and do this as an outpatient. I would also be available to do the operation either as an outpatient or in house if needed. Previous assessment that still applies today: A very-pleasant 76-year-old lady with multiple comorbid issues as listed below, presenting with a complicated picture of abdominal wall hernia which is recurrent from previous operation in 2010. There are at least 2 areas of herniation in the lower midline area. Unclear whether there is any mesh (no mention of mesh in 2010 op note). Patient also reports no other operations since then. Assuming no mesh present, the patient will still have need for complicated ventral hernia repair. Given the numerous pre-existing comorbidities, she is at virtually 100% risk of developing complications and roughly about 15-20% risk of mortality if an emergency operation is needed. Fortunately, I do not see a need for acute surgical intervention at this moment and would like to keep her n.p.o. with the hopes that the patient will convert from an emergency operation to an urgent or possibly an elective operation. If the patient stabilizes adequately enough, it may be to her best interest to be referred to a hernia center in order to deliver the best available care. Not certain if that will be a possibility in this case. With above assessment, I've recommended the followin. Continue current management 2. Continue n.p.o. status 3. Possible need for preoperative cardiopulmonary clearance 4. Labs in a.m. 5. Careful evaluation of I's and O's and vitals Thank you very much for having me involved in the care of this very pleasant patient and wonderful family. If you have any questions, please feel free to contact me at [phone]. Nature of presenting problem: High severity Please note that, given the extensive number of diagnoses or management options , the extensive amount and/or complexity of data needed to be reviewed, and high risk of complications and/or morbidity or mortality, this qualifies as high complexity type of decision-making. Disclaimer: Inadvertent spelling and grammatical errors are likely due to EHR/ dictation software use and do not reflect on the quality of delivered patient care. Also, please note that the electronic time recorded on this node does not necessarily reflect the actual time of the visit. Updated clinical summary: A very-pleasant 76-year-old lady with multiple comorbid issues as listed below, presenting with a complicated picture of abdominal wall hernia which is recurrent from previous operation in 2009. Comorbidities: 1. BMI 47.5 2. Status post cholecystectomy before 2009 3. Status post hospitalization [facility] April 2010 with NG decompression (? Small bowel obstruction) 4. Status post hospitalization [facility] August 2012 5. Atherosclerotic vascular disease with calcifications in the aorta 6. Ventral hernia noted minimum 2009 with additional images supporting hernia 2011 7. Nonobstructing left nephrolithiasis. 8. Dyslipidemia 9. Gastritis 10. Diabetes mellitus type 2 11. Hypertension with hypertensive emergencies. 12. Status post ventral hernia repair in the form of laparoscopic converted to open exploration for bowel obstruction secondary to volvulus by Dr. Tom Walsh on 04/28/2010 at [facility] 13. Umbilical hernia repair previous 2009 14. Status post partial hysterectomy Subjective: No major events or complaints; still with abdominal pain requiring medications; no n/v/d; no sob or cp; - flatus; - BM; - activity Objective: Vitals: See below I's & O's: See below Exam: GENERAL: On exam, the patient was lying in bed and appeared to be comfortable and in no acute distress. ABDOMEN: Soft, nontender and nondistended. Incisions are clean, dry and intact without any evidence of erythema, edema, discharge, or hernia. There are no peritoneal signs or guarding. SKIN: Skin appears to be pink and feels warm to touch. NEUROLOGIC: Patient is awake, alert, and follows commands appropriately. Labs: See below Exam/Review of Systems Vital Signs Vitals Vital Signs Date Time Temp Pulse Resp B/P Pulse Ox O2 Delivery O2 Flow Rate FiO2 06/13/17 17:00 99.2 06/13/17 15:12 81 18 139/61 94 06/12/17 00:21 Room Air Intake and Output 06/12/17 06/12/17 06/13/17 15:00 23:00 07:00 Intake Total 700 ml 1000 ml 700 ml Output Total 25 ml 75 ml Balance 700 ml 975 ml 625 ml Results Result Diagram: 06/13/17 0454 06/13/17 0450 COBY DAY M.D. Jun 13, 2017 20:12
[2017-06-13 20:14] VITALS: BP 157/70; RESP 19
[2017-06-14] MEDS: INSULIN ASPART [NOVOLOG] 3 ML PEN SC SCH ×4 (00:07→18:06)
[2017-06-14 02:10] VITALS: BP 139/63; RESP 18
[2017-06-14] MEDS: metroNIDAZOLE 500 MG/NS (PMX) 100 ML IVPB SCH ×3 (05:29→23:07)
[2017-06-14 05:57] LABS: BASOPHILS % 0.5 % (0.0-2.0); EOSINOPHILS # 0.2 10^3/ul (0.0-0.5); EOSINOPHILS % 2.2 % (0.0-7.0); HEMATOCRIT 37.5 % (37.0-47.0); LYMPHOCYTES # 2.5 10^3/ul (0.8-2.9); MEAN CORPUSCULAR HEMOGLOBIN 28.3 pg (29.0-33.0); MEAN CORPUSCULAR VOLUME 88.4 fl (82.0-101.0); MEAN PLATELET VOLUME 10.2 fl (7.4-10.4); MONOCYTE # 0.6 10^3/ul (0.3-0.9); MONOCYTES % 7.6 % (0.0-11.0); NEUTROPHIL # 4.9 10^3/ul (1.6-7.5); NEUTROPHILS % 59.3 % (39.0-77.0); PLATELET COUNT 217 10^3/UL (140-415); RED BLOOD COUNT 4.24 10^6/ul (4.20-5.40); RED CELL DISTRIBUTION WIDTH 13.4 % (11.5-14.5); WHITE BLOOD COUNT 8.3 10^3/ul (4.8-10.8)
[2017-06-14 06:10] LABS: INR 1.06; PROTIME 13.8 Sec (12.2-14.2); PT RATIO 1.1
[2017-06-14 06:11] LABS: PARTIAL THROMBOPLASTIN TIME 30.9 Sec (25.0-35.0)
[2017-06-14 06:45] LABS: ALBUMIN 3.4 g/dl (3.3-4.9); ALBUMIN/GLOBULIN RATIO 1.25; BILIRUBIN,INDIRECT 0.6 mg/dl (0-1.1); BILIRUBIN,TOTAL 0.6 mg/dl (0.2-1.3); CALCIUM 8.4 mg/dl (8.4-10.2); CREATININE 0.8 mg/dl (0.44-1.00); POTASSIUM 3.7 mmol/L (3.5-5.1); TOTAL PROTEIN 6.1 g/dl (6.1-8.1)
[2017-06-14 08:00] VITALS: BP 161/72; RESP 20
[2017-06-14] MEDS: INSULIN GLARGINE [LANtus] 3 ML PEN SC SCH (08:22)
[2017-06-14] MEDS: FAMOTIDINE 20 MG INJ IV SCH (08:22)
[2017-06-14] MEDS: DEXTROSE 5%-0.45% NACL 1,000 ML IV SCH ×2 (10:10→23:05)
--- NOTE | 2017-06-14 11:44 | PN ---
Date/Time of Note Date/Time of Note DATE: 06/14/17 TIME: 11:33 Assessment/Plan VTE Prophylaxis VTE Prophylaxis Intervention: SCD's Lines/Catheters IV Catheter Type (from Nrsg): Peripheral IV Urinary Cath still in place: No Assessment/Plan Assessment/Plan 1. acute Small bowel obstruction 2. Hernia of anterior abd wall 3. HTN 4. DM II 5. Morbid obesity 6. FEver spike-concerned about intraabdominal infection Plan: Pancultured yeserday, IV abx ceftriaxone and flagyl Bp stable,afebrile, NG tube discontinued X ray KUB ordered for today AM to follow up on SBO/Ileus if KUB negative then we will start po diet with clear liquids and advance as tolerated Pepcid for GI prophylaxis Subjective 24 Hr Interval Summary Free Text/Dictation Ng tube discontinued, Bp stable Exam/Review of Systems Vital Signs Vitals Vital Signs Date Time Temp Pulse Resp B/P Pulse Ox O2 Delivery O2 Flow Rate FiO2 06/14/17 08:00 99.3 75 20 161/72 94 06/12/17 00:21 Room Air Intake and Output 06/13/17 06/13/17 06/14/17 15:00 23:00 07:00 Intake Total 450 ml 1003 ml 800 ml Balance 450 ml 1003 ml 800 ml Exam Constitutional: alert, oriented Neck: non-tender, supple, + NG tube in place Respiratory: clear to auscultation, normal air movement Cardiovascular: nl pulses, regular rate and rhythm Gastrointestinal: no bowel sounds Results Result Diagram: 06/14/17 0446 06/14/17 0446 Results 24 hrs Laboratory Tests Test 06/13/17 12:13 06/13/17 17:03 06/14/17 00:03 06/14/17 04:46 Bedside Glucose 235 H 155 212 White Blood Count 8.3 Red Blood Count 4.24 Hemoglobin 12.0 Hematocrit 37.5 Mean Corpuscular Volume 88.4 Mean Corpuscular Hemoglobin 28.3 L Mean Corpuscular Hemoglobin Concent 32.0 Red Cell Distribution Width 13.4 Platelet Count 217 Mean Platelet Volume 10.2 Neutrophils % 59.3 Lymphocytes % 30.0 Monocytes % 7.6 Eosinophils % 2.2 Basophils % 0.5 Nucleated Red Blood Cells % 0.0 Neutrophils # 4.9 Lymphocytes # 2.5 Monocytes # 0.6 Eosinophils # 0.2 Basophils # 0.0 Nucleated Red Blood Cells # 0.0 Prothrombin Time 13.8 Prothrombin Time Ratio 1.1 INR International Normalized Ratio 1.06 Activated Partial Thromboplast Time 30.9 Sodium Level 141 Potassium Level 3.7 Chloride Level 102 Carbon Dioxide Level 28 Anion Gap 15 Blood Urea Nitrogen 7 Creatinine 0.80 Glucose Level 219 Calcium Level 8.4 Total Bilirubin 0.6 Direct Bilirubin 0.00 Indirect Bilirubin 0.6 Aspartate Amino Transf (AST/SGOT) 17 Alanine Aminotransferase (ALT/SGPT) 24 Alkaline Phosphatase 48 Total Protein 6.1 Albumin 3.4 Globulin 2.70 Albumin/Globulin Ratio 1.25 Test 06/14/17 05:56 06/14/17 08:09 Bedside Glucose 200 201 Medications Medications Current Medications Dextrose/Sodium Chloride (D5-1/2ns) 1,000 ml @ 100 mls/hr Q10H IV Last administered on 06/14/17 10:10; Admin Dose 100 MLS/HR; Start 06/12/17 at 01:30 Ondansetron HCl (Zofran Inj) 4 mg Q6H PRN IV NAUSEA AND/OR VOMITING Last administered on 06/13/17 13:27; Admin Dose 4 MG; Start 06/12/17 at 01:30 Insulin Aspart (Novolog Insulin Pen) NOVOLOG *MILD* ALGORI... Q6 SC Last administered on 06/14/17 05:58; Admin Dose 2 UNIT; Start 06/12/17 at 02:00 Miscellaneous Information 1 ea NOTE XX ; Start 06/12/17 at 02:00 Glucose (Glutose) 15 gm Q15M PRN PO DECREASED GLUCOSE; Start 06/12/17 at 02:00 Glucose (Glutose) 22.5 gm Q15M PRN PO DECREASED GLUCOSE; Start 06/12/17 at 02:00 Dextrose (D50w Syringe) 25 ml Q15M PRN IV DECREASED GLUCOSE; Start 06/12/17 at 02:00 Dextrose (D50w Syringe) 50 ml Q15M PRN IV DECREASED GLUCOSE; Start 06/12/17 at 02:00 Glucagon (Glucagen) 1 mg Q15M PRN IM DECREASED GLUCOSE; Start 06/12/17 at 02:00 Glucose (Glutose) 15 gm Q15M PRN BUCCAL DECREASED GLUCOSE; Start 06/12/17 at 02: 00 Famotidine (Pepcid Iv) 20 mg DAILY IV Last administered on 06/14/17 08:22; Admin Dose 20 MG; Start 06/12/17 at 09:00 Morphine Sulfate (morphine) 4 mg Q4H PRN IV PAIN Last administered on 06/13/17 02:29; Admin Dose 4 MG; Start 06/12/17 at 02:30 Insulin Glargine (Lantus) 18 unit DAILY@08 SC Last administered on 06/14/17 08: 22; Admin Dose 18 UNIT; Start 06/13/17 at 08:00 Hydralazine HCl (Apresoline) 10 mg Q4H PRN IV ELEVATED BLOOD PRESSURE Last administered on 06/13/17 02:30; Admin Dose 10 MG; Start 06/12/17 at 20:30 Acetaminophen 650 mg 650 mg Q6H PRN MT temperature Last administered on 10:02; Admin Dose 650 MG; Start 06/13/17 at 10:00 Ceftriaxone Sodium 50 ml @ 100 mls/hr Q24H IVPB Last administered on 06/13/17 12:48; Admin Dose 100 MLS/HR; Start 06/13/17 at 13:00 Metronidazole (Flagyl 500 Mg (Pmx)) 100 ml @ 100 mls/hr Q8 IVPB Last administered on 06/14/17 05:29; Admin Dose 100 MLS/HR; Start 06/13/17 at 14:00 HARSHA ATKINS MD Jun 14, 2017 11:43
[2017-06-14] MEDS: CEFTRIAXONE 1 GM/50 ML (PMX) 50 ML IVPB SCH (12:09)
[2017-06-14 14:00] VITALS: BP 163/68; RESP 18
--- NOTE | 2017-06-14 14:44 | RADRPT ---
PROCEDURE: XR Abdomen. CLINICAL INDICATION: Abdomen pain. TECHNIQUE: AP supine abdomen x-ray. COMPARISON: CT scan of the abdomen and pelvis dated 06/11/2017. FINDINGS: The bowel gas pattern is normal with no evidence of obstruction. Surgical clips are present from previous cholecystectomy. There are no abnormal calcifications overlying the urinary tracts. There are degenerative changes of the spine. IMPRESSION: 1. No evidence of obstruction. 2. Previous cholecystectomy. 3. Degenerative changes of the spine. RPTAT: QQ .Trey Ochoa MD, MD Date Time Electronically viewed and signed by .Trey Ochoa MD, MD on 06/14/2017 14:43 .R/
--- NOTE | 2017-06-14 16:23 | PN ---
Date/Time of Note Date/Time of Note DATE: 06/14/17 TIME: 16:15 Assessment/Plan Lines/Catheters IV Catheter Type (from Nrsg): Peripheral IV Morgan in Place (from Nrs): No Assessment/Plan Assessment/Plan [facility] Progress Note Date of Service: 06/14/2017 Place of service: [facility] second floor [place] Today's Assessment & Plan: Overall stable and slightly improved over the course of the last 2 days. Latest KUB shows no obvious evidence of bowel obstruction. Patient still reports abdominal pain and some nausea. No indication for acute surgical intervention today, but the patient still needs to be in-house and observed carefully. I discussed again at length over the phone with patient's son Ronnie. I believe that there was either a miscommunication or misunderstanding over the phone or that patient's son did understand my concerns and still was adamant that we would let her discharge from the hospital tomorrow. I did my best to explain to him that even though the patient does not require emergency operation at this time, that she was still fairly sick and was not able to discharge from the hospital. I very clearly explained to him that the decision to release her is partially up to me and partially up to other physicians were taking care of her and that if he insisted to take her home, he and family would have to do that AGAINST MEDICAL ADVICE. He was still adamant that he was planning on taking the patient home either today or tomorrow. He asked me to advise him how to take care of her at home and I tried again to explain to him that patient is not well enough to be outside of the hospital and needed careful observation in-house. I am not certain if he completely understood for that he did understand and still wanted to go against this advice. This should be noted among the team. For now, I do not recommend any other changes to her management, and will await further return of bowel function prior to resumption of oral intake. I do believe that the patient will require surgical intervention to take care of the problem, hopefully in an elective setting and hopefully under the expertise of a hernia specialist. Previous assessment that still applies today: A very-pleasant 76-year-old lady with multiple comorbid issues as listed below, presenting with a complicated picture of abdominal wall hernia which is recurrent from previous operation in 2009. There are at least 2 areas of herniation in the lower midline area. Unclear whether there was any mesh (no mention of mesh in 2010 op note). Patient also reported no other operations since then. Assuming no mesh present, the patient will still have need for complicated ventral hernia repair. Given the numerous pre-existing comorbidities, she was at virtually 100% risk of developing complications and roughly about 15-20% risk of mortality if an emergency operation was needed. Fortunately, I did not see a need for acute surgical intervention at my initial visit with her and wanted to keep her n.p.o. with the hopes that the patient would convert from an emergency operation to an urgent or possibly an elective operation. If the patient stabilized adequately enough, my recommendation was that the patient be referred to a hernia center in order to deliver the best available care. With above assessment, I've recommended the followin. Continue current management 2. Continue n.p.o. status 3. Possible need for preoperative cardiopulmonary clearance 4. Labs in a.m. 5. Careful evaluation of I's and O's and vitals Thank you very much for having me involved in the care of this very pleasant patient and wonderful family. If you have any questions, please feel free to contact me at [phone]. Nature of presenting problem: High severity Please note that, given the extensive number of diagnoses or management options , the extensive amount and/or complexity of data needed to be reviewed, and high risk of complications and/or morbidity or mortality, this qualifies as high complexity type of decision-making. Disclaimer: Inadvertent spelling and grammatical errors are likely due to EHR/ dictation software use and do not reflect on the quality of delivered patient care. Also, please note that the electronic time recorded on this node does not necessarily reflect the actual time of the visit. Updated clinical summary: A very-pleasant 76-year-old lady with multiple comorbid issues as listed below, presenting with a complicated picture of abdominal wall hernia which is recurrent from previous operation in 2009. Comorbidities: 1. BMI 47.5 2. Status post cholecystectomy before 2009 3. Status post hospitalization [facility] April 2010 with NG decompression (? Small bowel obstruction) 4. Status post hospitalization [facility] August 2012 5. Atherosclerotic vascular disease with calcifications in the aorta 6. Ventral hernia noted minimum 2009 with additional images supporting hernia 2011 7. Nonobstructing left nephrolithiasis. 8. Dyslipidemia 9. Gastritis 10. Diabetes mellitus type 2 11. Hypertension with hypertensive emergencies. 12. Status post ventral hernia repair in the form of laparoscopic converted to open exploration for bowel obstruction secondary to volvulus by Dr. Tom Walsh on 04/28/2010 at [facility] 13. Umbilical hernia repair previous 2009 14. Status post partial hysterectomy Subjective: No major events or complaints; still with abdominal pain requiring medications; reports mild nausea, but no obvious vomiting and no diarrhea; no sob or cp; - flatus; - BM; - activity Objective: Vitals: See below I's & O's: See below Exam: GENERAL: On exam, the patient was lying in bed and appeared to be comfortable and in no acute distress. ABDOMEN: Soft, nontender and nondistended. Incisions are clean, dry and intact without any evidence of erythema, edema, discharge, or hernia. There are no peritoneal signs or guarding. SKIN: Skin appears to be pink and feels warm to touch. NEUROLOGIC: Patient is awake, alert, and follows commands appropriately. Labs: See below Exam/Review of Systems Vital Signs Vitals Vital Signs Date Time Temp Pulse Resp B/P Pulse Ox O2 Delivery O2 Flow Rate FiO2 06/14/17 08:00 99.3 75 20 161/72 94 06/12/17 00:21 Room Air Intake and Output 06/13/17 06/13/17 06/14/17 15:00 23:00 07:00 Intake Total 450 ml 1003 ml 800 ml Balance 450 ml 1003 ml 800 ml Results Result Diagram: 06/14/17 0446 06/14/17 0446 COBY DAY M.D. Jun 14, 2017 16:23
[2017-06-14] MEDS ORDERED: BISACODYL 10 MG SUPP PR ONE (19:30)
[2017-06-14 20:12] VITALS: BP 151/66; RESP 18
[2017-06-14] MEDS ORDERED: NA PHOSPHATE/BIPHOS 133 ML ENEMA PR PRN (23:30)
[2017-06-15] MEDS: INSULIN ASPART [NOVOLOG] 3 ML PEN SC SCH ×2 (00:13→06:06)
[2017-06-15 02:06] VITALS: BP 150/68; RESP 18
[2017-06-15] MEDS: morphine 4 MG/ML VIAL IV PRN (04:49)
[2017-06-15 04:58] VITALS: BP 152/72; PULSE 68; RESP 18
[2017-06-15] MEDS: metroNIDAZOLE 500 MG/NS (PMX) 100 ML IVPB SCH (05:57)
[2017-06-15 06:51] LABS: BASOPHILS % 0.4 % (0.0-2.0); EOSINOPHILS # 0.2 10^3/ul (0.0-0.5); EOSINOPHILS % 2.7 % (0.0-7.0); HEMATOCRIT 37.6 % (37.0-47.0); HEMOGLOBIN 12.6 g/dl (12.0-16.0); LYMPHOCYTES # 1.8 10^3/ul (0.8-2.9); LYMPHOCYTES % 25.6 % (15.0-51.0); MEAN CORPUSCULAR HEMOGLOBIN 29.3 pg (29.0-33.0); MEAN CORPUSCULAR HGB CONC 33.5 g/dl (32.0-37.0); MEAN CORPUSCULAR VOLUME 87.4 fl (82.0-101.0); MEAN PLATELET VOLUME 10.2 fl (7.4-10.4); MONOCYTE # 0.5 10^3/ul (0.3-0.9); MONOCYTES % 6.3 % (0.0-11.0); NEUTROPHIL # 4.6 10^3/ul (1.6-7.5); NEUTROPHILS % 64.4 % (39.0-77.0); PLATELET COUNT 217 10^3/UL (140-415); RED CELL DISTRIBUTION WIDTH 13.2 % (11.5-14.5); WHITE BLOOD COUNT 7.1 10^3/ul (4.8-10.8)
[2017-06-15 07:04] LABS: INR 1.07; PROTIME 13.9 Sec (12.2-14.2); PT RATIO 1.1
[2017-06-15 07:34] LABS: CALCIUM 8.8 mg/dl (8.4-10.2); CREATININE 0.71 mg/dl (0.44-1.00); POTASSIUM 3.9 mmol/L (3.5-5.1)
[2017-06-15 08:00] VITALS: BP 153/64; RESP 20
[2017-06-15] MEDS: FAMOTIDINE 20 MG INJ IV SCH (09:45)
[2017-06-15] MEDS: INSULIN GLARGINE [LANtus] 3 ML PEN SC SCH (09:46)
--- NOTE | 2017-06-15 10:10 | RADRPT ---
PROCEDURE: XR Chest. CLINICAL INDICATION: Tachycardia, chest pain TECHNIQUE: Single frontal view of the chest was obtained COMPARISON: 06/12/2017 FINDINGS: There has been interval removal of the nasogastric tube. The heart remains enlarged with persistent fullness in the superior mediastinum. This could be exag gerated by the portable AP nature of the film. There is moderate pulmonary vascular congestion. Fine detail of the lung parenchyma is somewhat degraded by patient body habitus and the portable divina ure of the film. The bones and soft tissue show no acute change. IMPRESSION: 1. Cardiomegaly with persistent fullness in the superior mediastinum. 2. Moderate pulmonary vascular congestion. RPTAT:AAJJ Physician Kamilla Date Time Electronically viewed and signed by Darío Rodriguez Physician on 06/15/2017 10:10 DEANDRE/
--- NOTE | 2017-06-16 08:26 | RADRPT ---
Vent Rate: 71 bpm RR Interval: 0 msec ME Interval: 192 msec QRS Duration: 96 msec QT Interval: 474 msec QTC Interval: 515 msec P-R-T [place]: 48 - 40 - 22 degrees Normal sinus rhythm Nonspecific T wave abnormality Prolonged QT Abnormal ECG Electronically Signed By: Isma Mcclelland [id number]
--- NOTE | 2017-06-17 23:51 | DS ---
Date/Time of Note Date/Time of Note DATE: 06/17/17 TIME: 23:47 Discharge Summary Admission/Discharge Info Admit Date/Time Jun 12, 2017 at 00:22 Discharge Date/Time Jun 15, 2017 at 12:45- pt signed out against medical advise Discharge Diagnosis 1. acute Small bowel obstruction 2. Hernia of anterior abd wall 3. HTN 4. DM II 5. Morbid obesity 6. FEver spike-concerned about intraabdominal infection Patient Condition: Good Consults General surgery consult Dr.kambiz dillon Procedures CT abdomen +pelvis, X ray KUB Hx of Present Illness This is a 76-year-old female with a history of hypertension, diabetes, dyslipidemia, gastritis, ventral hernia repair, small bowel obstruction secondary to volvulus, status post laparoscopic converted to open exploration in 2009. Patient presented to the ER complaining of abdominal pain which started a few hours prior to presentation to the ER. Pain is diffuse but mainly located in the mid abdomen with associated nausea. When she presented to the ER, blood pressure was 195/86, respiratory rate of 22 otherwise the rest of her vitals were stable. Except a glucose of 228, CBC and CMP were within acceptable range. CT abd/pelvis showed Increased herniation of small bowel into the right paracentral ventral pelvic subcutaneous tissues, with new small bowel obstruction. . Hospital Course She was admitted with SBO, she was kept NPO, seen by , treated with IVF and IV pain meds. her SBO was resolved but pt spiked fever, and we were concerned about Abdomianl infection, she was treated with IV ceftriaxone and IV flagyl. she had KUB negative, we were going to discharge her on 06/15/17 but family did not wanted to wait and they signed out Against medical advise knowing the risks and complications of it including possible Home Meds Active Scripts Ondansetron Hcl* (Zofran* ODT) 4 mg -ODT Tab.disper, 4 MG PO Q6 Y for NAUSEA AND /OR VOMITING, #10 TAB Prov:MARIBEL FARIA DO 04/15/16 Acetaminophen* (Tylophen*) 500 Mg Capsule, 500 MG PO Q6H, #20 TAB Prov:GREENRUSSELLMARIBEL DO 04/15/16 Polyethylene Glycol* (Miralax*) 17 Gm Powd.pack, 17 GM PO DAILY, #7 Prov:MARIBEL FARIA DO 04/15/16 Magnesium Citrate* (Citroma*) 300 Ml Soln, 300 ML PO ONCE, #1 BOTTLE Prov:MARIBEL FARIA DO 04/15/16 Reported Medications Nph, Human Insulin Isophane (Humulin N) 100 Units/Ml Vial 04/25/10 Atenolol* (Atenolol*) 50 Mg Tablet 04/25/10 Olmesartan-Hydrochlorothiazide (Benicar HCT) 1 Tab Tablet 04/25/10 Meloxicam (Mobic) 15 Mg Tablet 04/25/10 Tramadol Hcl* (Ultram*) 50 Mg Tablet 04/25/10 Omeprazole* (Omeprazole*) 20 Mg Capsule. 04/25/10 Lorazepam* (Ativan*) 0.5 Mg Tablet 04/25/10 Benazepril Hcl* (Lotensin*) 20 Mg Tablet 04/25/10 Glyburide, Micro-Metformin Hcl (Glyburid-Metformin) 1 Tab Tablet 04/25/10 Atorvastatin (Lipitor) 40 Mg Tablet 04/25/10 Atorvastatin (Lipitor) 40 Mg Tablet 04/25/10 Zolpidem Tartrate* (Ambien*) 10 Mg Tablet 04/25/10 Belladonna Alkaloids/Phenobarb (Belladonna-Phenobarbital Tab) 16.2 Mg Tablet 04/25/10 Follow-up Plan She was advised by Nursing staff to follow up with PMD as soon as possible, family understood and verbalized understanding Primary Care Provider Care Physician No Primary Time spent on discharge: > 30 minutes HARSHA ATKINS MD Jun 17, 2017 23:51
== END 2017-06-15 12:45 | disposition left against medical advice (07) | DRG 389 ==
LOC: E/R 22:49 → PP2 06-12 00:22
PROVIDERS: ADMIT Internal Medicine; ATTEND Internal Medicine
DX: K56.69 Other intestinal obstruction (principal); Z68.42 Body mass index [BMI] 45.0-49.9, adult; I50.32 Chronic diastolic (congestive) heart failure; E11.9 Type 2 diabetes mellitus without complications; K43.9 Ventral hernia without obstruction or gangrene; R50.9 Fever, unspecified; I16.0 Hypertensive urgency; E66.01 Morbid (severe) obesity due to excess calories; Z53.21 Procedure and treatment not carried out due to patient leaving prior to being seen by health care provider; Z98.890 Other specified postprocedural states; Z87.19 Personal history of other diseases of the digestive system; Z86.39 Personal history of other endocrine, nutritional and metabolic disease
CPT/HCPCS: 36415; 71010; 74000; 74176; 80048; 80053; 81001; 82962; 83605; 83690; 83735; 84100; 84484; 85025; 85610; 85730; 87040; 87086; 93005; 96374; 96375; J0360; J0696; J1815; J2270; J2405; J7030; J7040; J7042